=== PATIENT | male | born 1965 | race Caucasian/White ===

== ENCOUNTER → 2017-06-20 | Day surgery (SDC) | payer OTHER, SELFPAY ==
[~2017-06-20] MED LIST: Lactated Ringers 1,000 ML IV SCH; Propofol 200 MG/20 ML SDV IV ONE
[2017-06-20 15:36] VITALS: BP 139/90
--- NOTE | 2017-06-21 08:46 | OR ---
DATE OF OPERATION: 06/20/2017 PREOPERATIVE DIAGNOSIS: RECTAL BLEEDING. POSTOPERATIVE DIAGNOSIS: POLYPS COLON, TRANSVERSE COLON NEAR THE HEPATIC FLEXURE POLYP COLON, NEAR THE SPLENIC FLEXURE IN THE TRANSVERSE COLON, POLYPS IN THE DESCENDING COLON, POLYP IN THE SIGMOID COLON, AND POLYPS IN THE RECTAL AREA. SURGEON: Elder Kennedy MD PROCEDURE: COLONOSCOPY AND BIOPSY POLYPS IN THE TRANSVERSE COLON CLOSE TO THE HEPATIC FLEXURE AND THEN SNARE POLYPECTOMIES POLYP NEAR THE SPLENIC FLEXURE, THEN DESCENDING COLON, AND SIGMOID COLON, AND RECTUM. ALL THESE POLYPS WERE REMOVED WITH HELP OF A SNARE TECHNIQUE. ANESTHESIA: IV sedation by SHIRT IRONER. DESCRIPTION OF PROCEDURE: After the patient was placed in left lateral position, colonoscope was introduced into anal canal from where it was maneuvered into rectum, then into sigmoid colon, gradually up the descending colon across the splenic flexure, into transverse colon, across the hepatic flexure, into ascending colon down to cecum. Colonoscope was gradually withdrawn. Close to the hepatic flexure in the transverse colon, there was a tiny polyp present which was removed with help of biopsy forceps. Then gradually as the colonoscope was withdrawn, there was another polyp in the transverse colon closer to the splenic flexure and using snare technique, it was removed and then the colonoscope was gradually withdrawn. There were two polyps in the descending colon. They were both removed and taken as specimen. There was a polyp in the sigmoid colon. It was also removed using snare technique. Then, a polyp in the rectum which was also removed using snare technique. All these polyps were removed using suction technique. The patient tolerated the procedure well and left the operating room in satisfactory condition. SABRINA/ARGENTINA /[id number]
== END ==
LOC: CC.SDS 10:53
PROVIDERS: ATTEND Surgery
DX: D12.3 Benign neoplasm of transverse colon (principal); D12.5 Benign neoplasm of sigmoid colon; K62.1 Rectal polyp; I10 Essential (primary) hypertension; Z79.899 Other long term (current) drug therapy
CPT/HCPCS: 45380; 45385; J2704; J7120; 00810

== ENCOUNTER → 2022-10-22 | Day surgery (SDC) | payer OTHER ==
[~2022-10-22] MED LIST changes: -Propofol 200 MG/20 ML SDV IV ONE; +Propofol 200 MG/20 ML SDV ONE
[2022-10-22 09:31] VITALS: BP 125/80; PULSE 79
== END ==
LOC: CC.SDS 06:45
PROVIDERS: ATTEND Family Medicine
DX: Z12.11 Encounter for screening for malignant neoplasm of colon (principal); D12.2 Benign neoplasm of ascending colon; D12.5 Benign neoplasm of sigmoid colon; D12.3 Benign neoplasm of transverse colon; I10 Essential (primary) hypertension; E11.9 Type 2 diabetes mellitus without complications; E78.5 Hyperlipidemia, unspecified; G47.00 Insomnia, unspecified; K57.30 Diverticulosis of large intestine without perforation or abscess without bleeding; E66.9 Obesity, unspecified; Z86.010 Personal history of colon polyps; Z80.0 Family history of malignant neoplasm of digestive organs; Z79.899 Other long term (current) drug therapy; Z79.84 Long term (current) use of oral hypoglycemic drugs; Z68.42 Body mass index [BMI] 45.0-49.9, adult
CPT/HCPCS: 45385; J2704; J7120